=== PATIENT | male | born 1985 | race Two or more races ===

== ENCOUNTER 2016-12-11 17:43 | Emergency (ER) | payer OTHER ==
[~2016-12-11] VITALS: Ht 172.7 cm; Wt 99.8 kg
[2016-12-11] MEDS ORDERED: LIDODERM 5% P1 PATCH TD (19:22)
[2016-12-11] MEDS ORDERED: FLEXERIL10 MG PO (19:22)
[2016-12-11] MEDS ORDERED: PERCOCET 5/31 TABLET PO (19:22)
[2016-12-11 20:01] VITALS: BP 136/77
== END 2016-12-11 20:03 | disposition home or self-care (01) ==
LOC: EME 17:43
DX: S39.012A Strain of muscle, fascia and tendon of lower back, initial encounter (principal); M62.838 Other muscle spasm; X50.1XXA Overexertion from prolonged static or awkward postures, initial encounter; Y93.E1 Activity, personal bathing and showering
CPT/HCPCS: 72100; 99281; 99284; J1100; J1885